=== PATIENT | female | born 1980 | race Caucasian/White ===

== ENCOUNTER 2018-11-06 14:09 | Emergency (ER) | payer MEDICAID, OTHER ==
[~2018-11-06] VITALS: Ht 157.5 cm; Wt 102.1 kg
[2018-11-06 14:15] VITALS: BP_SYST 149
--- NOTE | 2018-11-06 14:24 | NUR ---
Note [place] in EDM - 11/06/18 at 1524 by [email or web address] Pt brought by self, A&Ox4, pt presents to ER with bilateral hand pain and numbness, VS WNL, respirations even and unlabored, afebrile, will continue to monitor.
--- NOTE | 2018-11-06 14:25 | NUR ---
Patient to ER [place] [facility] to [facility] for evaluation. Side rails up. Report given to Thu DOE.
--- NOTE | 2018-11-06 14:26 | NUR ---
Sherrill [employer] at bedside examining patient.
--- NOTE | 2018-11-06 14:26 | NUR ---
Pt brought by self, A&Ox4, pt presents to ER with bilateral hand pain and numbness, VS WNL, respirations even and unlabored, afebrile, will continue to monitor.
[2018-11-06] MEDS ORDERED: KETOROLAC TROMETHAMINE 60 MG/2 ML VIAL IM ONE (14:45)
--- NOTE | 2018-11-06 15:20 | NUR ---
Patient given written and verbal discharge instructions and verbalizes understanding. ER MD discussed with patient the results and treatment provided. Patient in stable condition. ID arm band removed. Rx of Naproxen given. Patient educated on pain management and to follow up with PMD. Pain Scale 3/10 tolerable for patient . Opportunity for questions provided and answered. Medication side effect fact sheet provided.
[2018-11-06 15:21] VITALS: BP_SYST 148
== END 2018-11-06 15:21 | disposition home or self-care (01) ==
LOC: SED 14:09
DX: G56.03 Carpal tunnel syndrome, bilateral upper limbs (principal); I10 Essential (primary) hypertension
CPT/HCPCS: 29125; 96372; 99283; J1885

== ENCOUNTER 2019-06-04 09:59 | Emergency (ER) | payer MEDICAID, OTHER ==
[~2019-06-04] VITALS: Ht 157.5 cm; Wt 101.2 kg
[2019-06-04 10:07] VITALS: BP_SYST 142
[2019-06-04] MEDS ORDERED: KETOROLAC TROMETHAMINE 60 MG/2 ML VIAL IM ONE (10:30)
[2019-06-04 10:40] LABS: BASOPHILS # (AUTO) 0.1 K/uL (0.0-0.2); BASOPHILS % (AUTO) 0.8 % (0.0-2.0); EOSINOPHILS # (AUTO) 0.3 K/uL (0.0-0.4); HEMATOCRIT 37.3 % (36-48); HEMOGLOBIN 12.4 g/dL (12.0-16.0); LYMPHOCYTES % (AUTO) 36.5 % (20.5-51.5); MEAN CORPUSCULAR HEMOGLOBIN 31 pg (27-31); MEAN CORPUSCULAR HGB CONC 33 % (32-36); MEAN CORPUSCULAR VOLUME 93 fL (79.0-98.0); MONOCYTES # (AUTO) 0.4 K/uL (0.0-1.0); MONOCYTES % (AUTO) 4.9 % (1.7-9.3); NEUTROPHILS # (AUTO) 4.4 K/uL (1.8-7.7); NEUTROPHILS % (AUTO) 53.8 % (40.0-70.0); PLATELET COUNT (AUTO) 273 K/uL (130-430); RED BLOOD CELL COUNT(AUTO) 4.01 MIL/uL (4.2-6.2); RED CELL DISTRIBUTION WIDTH 12.4 % (9.0-15.0); WHITE BLOOD COUNT (AUTO) 8.1 K/uL (4.8-10.8)
[2019-06-04 10:45] LABS: CALCIUM 8.7 mg/dL (8.4-11.0); CREATININE 0.63 mg/dL (0.55-1.30); POTASSIUM 3.7 mmol/L (3.5-5.1)
[2019-06-04 10:50] LABS: ALBUMIN 2.9 g/dL (3.4-4.8); TOTAL BILIRUBIN 0.6 mg/dL (0.0-1.0)
[2019-06-04 11:57] VITALS: BP_SYST 138
== END 2019-06-04 11:58 | disposition home or self-care (01) ==
LOC: SED 09:59
DX: K57.92 Diverticulitis of intestine, part unspecified, without perforation or abscess without bleeding (principal); I10 Essential (primary) hypertension
CPT/HCPCS: 36415; 74176; 80053; 81002; 81025; 83690; 85025; 96372; 99284; J1885

== ENCOUNTER 2019-11-26 11:54 | Emergency (ER) | payer MEDICAID ==
--- NOTE | 2019-11-26 12:15 | NUR ---
Alok cross in [facility] - 11/26/19 at 1726 by [email or web address] JUAN ANTONIO Fontaine at bedside examining patient.
[2019-11-26] MEDS ORDERED: MORPHINE 2 MG/ML INJ. SYRINGE IVP ONE (12:30)
[2019-11-26] MEDS ORDERED: ONDANSETRON HCL 4 MG/2 ML VIAL IVP ONE (12:30)
--- NOTE | 2019-11-26 12:30 | NUR ---
Patient to ER bed 08 to gown for evaluation. Side rails up.
--- NOTE | 2019-11-26 12:31 | NUR ---
ER Dr. Fontaine at bedside examining patient.
--- NOTE | 2019-11-26 12:32 | NUR ---
Patient arrived in the ED accompanied by her c/o LLQ abdominal pain that started 2 weeks ago. Denied any recent trauma or falls. Denied any chest pain or shortness of breath. Patient is alert and oriented x4, respirations e/gonzález and unlabored, speaking in full sentences and ambulating with a steady gait. VSS, pain level 8/10. at bedside. Informed of the approximate wait time. Instructed to notify ED staff for any changes in condition or worsening of symptoms. Patient verbalized understanding.
--- NOTE | 2019-11-26 12:55 | NUR ---
# 20 gauge angiocath placed to right wrist. Use of asceptic technique. Opsite placed over site. Blood return noted. Blood for lab drawn from site. Flushed with 10 cc of normal saline. No evidence of infiltration noted. Patient tolerated well.
--- NOTE | 2019-11-26 12:56 | NUR ---
Administered Zofran IVP and Morphine IVP as ordered by Dr. Fontaine. Patient tolerated the medications well. See eMAR for details.
--- NOTE | 2019-11-26 13:00 | NUR ---
Patient taken to CT in stable condition.
[2019-11-26 13:13] LABS: BASOPHILS # (AUTO) 0.1 K/uL (0.0-0.2); BASOPHILS % (AUTO) 0.6 % (0.0-2.0); EOSINOPHILS # (AUTO) 0.3 K/uL (0.0-0.4); EOSINOPHILS % (AUTO) 3.1 % (0.0-4.0); HEMATOCRIT 40.9 % (36-48); HEMOGLOBIN 13.3 g/dL (12.0-16.0); LYMPHOCYTES # (AUTO) 3.5 K/uL (1.0-5.5); LYMPHOCYTES % (AUTO) 31.4 % (20.5-51.5); MEAN CORPUSCULAR HEMOGLOBIN 30 pg (27-31); MEAN CORPUSCULAR HGB CONC 32 % (32-36); MEAN CORPUSCULAR VOLUME 93 fL (79.0-98.0); MONOCYTES # (AUTO) 0.6 K/uL (0.0-1.0); MONOCYTES % (AUTO) 5.5 % (1.7-9.3); NEUTROPHILS # (AUTO) 6.6 K/uL (1.8-7.7); NEUTROPHILS % (AUTO) 59.4 % (40.0-70.0); PLATELET COUNT (AUTO) 297 K/uL (130-430); RED BLOOD CELL COUNT(AUTO) 4.38 MIL/uL (4.2-6.2); RED CELL DISTRIBUTION WIDTH 13.2 % (9.0-15.0)
[2019-11-26 13:24] LABS: CREATININE 0.58 mg/dL (0.55-1.30)
[2019-11-26 13:25] LABS: INR 0.9 (0.8-1.2); PROTHROMBIN TIME 9.5 SECS (9.5-12.5)
--- NOTE | 2019-11-26 13:25 | NUR ---
Patient is back from CT in stable condition.
[2019-11-26 13:29] LABS: ALBUMIN 2.8 g/dL (3.4-4.8); TOTAL BILIRUBIN 0.6 mg/dL (0.0-1.0)
[2019-11-26 13:31] LABS: BILIRUBIN,URINE NEGATIVE (NEGATIVE); BLOOD, URINE NEGATIVE (NEGATIVE); CLARITY/URINE CLEAR (CLEAR); COLOR,URINE YELLOW (YELLOW); GLUCOSE,URINE NEGATIVE (NEGATIVE); KETONES,URINE NEGATIVE (NEGATIVE); LEUKOCYTE ESTERASE ,URINE TRACE (NEGATIVE); NITRITE, URINE NEGATIVE (NEGATIVE); PH,URINE 7.5 (5.0-8.0); PROTEIN URINE NEGATIVE (NEGATIVE); UROBILINOGEN,URINE 0.2 (0.2-1.0)
[2019-11-26 14:28] LABS: BACTERIA,URINE RARE /HPF (None Seen); RBC,URINE 0-3 /HPF (0-3)
--- NOTE | 2019-11-26 14:55 | NUR ---
Patient given written and verbal discharge instructions and verbalizes understanding. ER MD discussed with patient the results and treatment provided. Patient in stable condition. ID arm band removed. IV catheter removed intact and dressing applied, no active bleeding. Rx of Flagyl, Motrin, Colace given. Patient educated on pain management and to follow up with PMD. Pain Scale 0/10. Opportunity for questions provided and answered. Medication side effect fact sheet provided.
[2019-11-26 14:57] VITALS: BP_SYST 116
[2019-11-26 15:03] VITALS: BP_SYST 116
== END 2019-11-26 15:03 | disposition home or self-care (01) ==
LOC: SED 11:54
DX: N39.0 Urinary tract infection, site not specified (principal); I10 Essential (primary) hypertension
CPT/HCPCS: 36415; 74176; 80053; 81000; 81025; 83690; 85025; 85610; 85730; 96374; 96375; 99284; J2270; J2405

== ENCOUNTER 2020-07-31 14:15 | Emergency (ER) | payer MEDICAID ==
[~2020-07-31] VITALS: Ht 157.5 cm; Wt 107.5 kg
[2020-07-31 14:27] VITALS: BP_SYST 141
[2020-07-31 18:10] VITALS: BP_SYST 141
== END 2020-07-31 18:10 | disposition home or self-care (01) ==
LOC: SED 14:15
DX: M54.5 Low back pain (principal); M25.561 Pain in right knee; I10 Essential (primary) hypertension; F17.210 Nicotine dependence, cigarettes, uncomplicated
CPT/HCPCS: 72110; 73564; 81025; 99284

== ENCOUNTER 2021-06-08 14:46 | Emergency (ER) | payer MEDICAID ==
[~2021-06-08] VITALS: Ht 157.5 cm; Wt 113.4 kg
[2021-06-08 15:00] VITALS: BP_SYST 134
[2021-06-08 16:32] LABS: CALCIUM 8.7 mg/dL (8.4-11.0); CREATININE 0.61 mg/dL (0.55-1.30); POTASSIUM 4.2 mmol/L (3.5-5.1)
[2021-06-08 16:46] LABS: ALBUMIN 2.9 g/dL (3.4-4.8); BASOPHILS # (AUTO) 0.1 K/uL (0.0-0.2); BASOPHILS % (AUTO) 0.5 % (0.0-2.0); EOSINOPHILS # (AUTO) 0.4 K/uL (0.0-0.4); EOSINOPHILS % (AUTO) 3.5 % (0.0-4.0); HEMATOCRIT 36.4 % (36-48); LYMPHOCYTES # (AUTO) 4.2 K/uL (1.0-5.5); LYMPHOCYTES % (AUTO) 36.8 % (20.5-51.5); MEAN CORPUSCULAR HEMOGLOBIN 31 pg (27-31); MEAN CORPUSCULAR HGB CONC 33 % (32-36); MEAN CORPUSCULAR VOLUME 94 fL (79.0-98.0); MONOCYTES # (AUTO) 0.7 K/uL (0.0-1.0); MONOCYTES % (AUTO) 6.4 % (1.7-9.3); NEUTROPHILS % (AUTO) 52.8 % (40.0-70.0); PLATELET COUNT (AUTO) 291 K/uL (130-430); RED BLOOD CELL COUNT(AUTO) 3.86 MIL/uL (4.2-6.2); TOTAL BILIRUBIN 0.2 mg/dL (0.0-1.0); WHITE BLOOD COUNT (AUTO) 11.4 K/uL (4.8-10.8)
[2021-06-08 17:06] LABS: INR 0.9 (0.8-1.2); PROTHROMBIN TIME 9.1 SECS (9.5-12.5)
[2021-06-08 17:20] LABS: BILIRUBIN,URINE NEGATIVE (NEGATIVE); BLOOD, URINE NEGATIVE (NEGATIVE); CLARITY/URINE CLEAR (CLEAR); COLOR,URINE YELLOW (YELLOW); GLUCOSE,URINE NEGATIVE (NEGATIVE); KETONES,URINE NEGATIVE (NEGATIVE); LEUKOCYTE ESTERASE ,URINE NEGATIVE (NEGATIVE); NITRITE, URINE NEGATIVE (NEGATIVE); PH,URINE 6.5 (5.0-8.0); PROTEIN URINE NEGATIVE (NEGATIVE); UROBILINOGEN,URINE 0.2 (0.2-1.0)
[2021-06-08] MEDS: KETOROLAC TROMETHAMINE 60 MG/2 ML VIAL IM ONE (17:57)
[2021-06-08] MEDS: HYDROcodone/ACETAMIN 10-325 MG TAB PO ONE (17:57)
[2021-06-08] MEDS ORDERED: HYDR-3917 PO (18:15)
[2021-06-08] MEDS ORDERED: IBUP-1969 PO (18:15)
[2021-06-08 18:22] VITALS: BP_SYST 134
== END 2021-06-08 18:22 | disposition home or self-care (01) ==
LOC: SED 14:46
DX: R10.9 Unspecified abdominal pain (principal); I10 Essential (primary) hypertension; Z79.899 Other long term (current) drug therapy
CPT/HCPCS: 36415; 74176; 76376; 80053; 81003; 81025; 82150; 83605; 83690; 84703; 85025; 85610; 85730; 96372; 99284; J1885

== ENCOUNTER 2021-10-27 09:51 | Emergency (ER) | payer MEDICAID ==
[~2021-10-27] VITALS: Ht 157.5 cm; Wt 111.6 kg
[~2021-10-27 09:51] MED LIST: HYDR-3917 PO; IBUP-1969 PO
[2021-10-27 10:01] VITALS: BP_SYST 135
--- NOTE | 2021-10-27 10:01 | NUR ---
PT BROUGHT BACK TO BED #1 AND TRIAGED. REPORT GIVEN TO JULIUS
--- NOTE | 2021-10-27 10:05 | NUR ---
ER at bedside examining patient.
[2021-10-27] MEDS ORDERED: NAPR-688 PO (12:50)
[2021-10-27] MEDS ORDERED: LIDO1ADH77 TP (12:50)
--- NOTE | 2021-10-27 13:07 | NUR ---
Patient given written and verbal discharge instructions and verbalizes understanding. ER MD discussed with patient the results and treatment provided. Patient in stable condition. ID arm band removed. Rx of LIDOCAINE, NAPROXEN given. Patient educated on pain management and to follow up with PMD. Pain Scale 0/10. Opportunity for questions provided and answered. Medication side effect fact sheet provided.
== END 2021-10-27 13:07 | disposition home or self-care (01) ==
LOC: SED 09:51
DX: M25.562 Pain in left knee (principal); I10 Essential (primary) hypertension; Z79.899 Other long term (current) drug therapy
CPT/HCPCS: 73564; 99283

== ENCOUNTER 2022-04-04 10:38 | Emergency (ER) | payer MEDICAID ==
[~2022-04-04] VITALS: Ht 154.9 cm; Wt 112.5 kg
[~2022-04-04 10:38] MED LIST changes: +LIDO1ADH77 TP; +NAPR-688 PO
[2022-04-04 10:40] VITALS: BP_SYST 150
--- NOTE | 2022-04-04 10:45 | NUR ---
Patient to ER bed 7 to gown for evaluation. Side rails up. Report given to NADER INFANTE.
--- NOTE | 2022-04-04 11:05 | NUR ---
Assumed care of patient who came from home c/o severe pain 07/09 to rt knee, especially when bearing weight. Patient states pain has been present for several months and that she was diagnosed with a torn meniscus. Saw doctor who suggested cortisone shot. Patient has ask for referral to new doctor for second opinion. 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 Patient VS WNL, she is sitting on gurney with appropriate side rails in place.
--- NOTE | 2022-04-04 12:16 | NUR ---
JUAN ANTONIO Levine at bedside examining patient.
[2022-04-04] MEDS ORDERED: HYDROcodone/ACETAMIN 5-325 MG TAB (NORCO/ VICODIN) PO ONE (12:45)
[2022-04-04] MEDS ORDERED: HYDR-3917 PO (12:54)
[2022-04-04 13:07] VITALS: BP_SYST 147
--- NOTE | 2022-04-04 13:07 | NUR ---
Patient given written and verbal discharge instructions and verbalizes understanding. ER MD discussed with patient the results and treatment provided. Patient in stable condition. ID arm band removed. Rx of NORCO given. Patient educated on pain management and to follow up with PMD. Pain Scale 0/10. Opportunity for questions provided and answered. Medication side effect fact sheet provided.
== END 2022-04-04 13:07 | disposition home or self-care (01) ==
LOC: SED 10:38
DX: M25.561 Pain in right knee (principal); I10 Essential (primary) hypertension
CPT/HCPCS: 99283

== ENCOUNTER 2023-05-31 09:14 | Emergency (ER) | payer MEDICAID ==
[~2023-05-31] VITALS: Ht 157.5 cm; Wt 90.7 kg
[2023-05-31 09:15] VITALS: BP_SYST 121; PULSE 53; RESP 18; TEMP 97.7; O2SAT 97
[2023-05-31] MEDS ORDERED: IBUP-1971 PO (09:57)
[2023-05-31] MEDS ORDERED: IBUPROFEN 800 MG TABLET PO ONE (10:00)
[2023-05-31 10:18] VITALS: BP_SYST 120; PULSE 57; RESP 18; TEMP 97.7; O2SAT 97
== END 2023-05-31 10:17 | disposition home or self-care (01) ==
LOC: SED 09:14
DX: S93.402A Sprain of unspecified ligament of left ankle, initial encounter (principal); I10 Essential (primary) hypertension; Z79.899 Other long term (current) drug therapy; X58.XXXA Exposure to other specified factors, initial encounter; Y93.89 Activity, other specified; Y92.89 Other specified places as the place of occurrence of the external cause; Y99.8 Other external cause status
CPT/HCPCS: 99283

== ENCOUNTER 2023-09-18 08:14 | Emergency (ER) | payer MEDICAID ==
[~2023-09-18] VITALS: Ht 154.9 cm; Wt 110.2 kg
[~2023-09-18 08:14] MED LIST changes: +IBUP-1971 PO
[2023-09-18] MEDS ORDERED: SEMA0.253 IM (08:24)
[2023-09-18 08:25] VITALS: BP_SYST 132; PULSE 93; RESP 18; TEMP 97.5; O2SAT 96
[2023-09-18] MEDS ORDERED: LOSA100T24 PO (08:25)
[2023-09-18] MEDS ORDERED: MORPHINE 4 MG INJ. 4 MG/ML VIAL IVP ONE (09:30)
[2023-09-18] MEDS ORDERED: ONDANSETRON HCL 4 MG/2 ML VIAL IVP ONE (09:30)
[2023-09-18 09:41] LABS: BASOPHILS # (AUTO) 0.1 K/uL (0.0-0.2); BASOPHILS % (AUTO) 0.4 % (0.0-2.0); EOSINOPHILS # (AUTO) 0.2 K/uL (0.0-0.4); EOSINOPHILS % (AUTO) 1.6 % (0.0-4.0); HEMATOCRIT 38.4 % (36-48); HEMOGLOBIN 12.2 g/dL (12.0-16.0); LYMPHOCYTES # (AUTO) 1.7 K/uL (1.0-5.5); LYMPHOCYTES % (AUTO) 13.3 % (20.5-51.5); MEAN CORPUSCULAR HEMOGLOBIN 28 pg (27-31); MEAN CORPUSCULAR HGB CONC 32 % (32-36); MEAN CORPUSCULAR VOLUME 89 fL (79.0-98.0); MONOCYTES # (AUTO) 0.8 K/uL (0.0-1.0); MONOCYTES % (AUTO) 6.2 % (1.7-9.3); NEUTROPHILS # (AUTO) 10.3 K/uL (1.8-7.7); NEUTROPHILS % (AUTO) 78.5 % (40.0-70.0); PLATELET COUNT (AUTO) 297 K/uL (130-430); RED BLOOD CELL COUNT(AUTO) 4.31 MIL/uL (4.2-6.2); RED CELL DISTRIBUTION WIDTH 13.3 % (9.0-15.0); WHITE BLOOD COUNT (AUTO) 13.1 K/uL (4.8-10.8)
[2023-09-18 09:55] LABS: CALCIUM 9.3 mg/dL (8.4-11.0); CREATININE 0.49 mg/dL (0.55-1.30); POTASSIUM 3.5 mmol/L (3.5-5.1)
[2023-09-18 09:59] LABS: TOTAL BILIRUBIN 0.9 mg/dL (0.0-1.0); TOTAL PROTEIN, SERUM 6.3 g/dL (6.4-8.3)
[2023-09-18] MEDS ORDERED: AMOXICILLIN/POTASSIUM CLAV 875 MG TABLET PO ONE (10:30)
[2023-09-18 10:40] VITALS: BP_SYST 118; PULSE 93; RESP 18; TEMP 97.8; O2SAT 100
[2023-09-18] MEDS ORDERED: AUG875 PO (10:57)
[2023-09-18] MEDS ORDERED: HYDR-3917 PO (10:57)
[2023-09-18] MEDS ORDERED: DOCU283E RC (10:57)
[2023-09-18] MEDS ORDERED: POLY119P3 PO (10:57)
[2023-09-18] MEDS ORDERED: ONDA-8 TL (11:00)
== END 2023-09-18 11:05 | disposition home or self-care (01) ==
LOC: SED 08:14
DX: K80.20 Calculus of gallbladder without cholecystitis without obstruction (principal); K59.00 Constipation, unspecified; K92.1 Melena; K52.9 Noninfective gastroenteritis and colitis, unspecified; R10.32 Left lower quadrant pain; I10 Essential (primary) hypertension; Z79.899 Other long term (current) drug therapy
CPT/HCPCS: 99285; 74176; 96374; 96375; 80053; 83690; 85025; 87040; 36415; 76376; 83605; J2405; J2270